=== PATIENT | male | born 1935 | race Caucasian/White ===

== ENCOUNTER 2017-12-19 05:23 | Emergency (ER) | payer MEDICARE, BC, SELFPAY ==
[2017-12-19 05:28] VITALS: BP 182/82; PULSE 85; RESP 18; TEMP 37.1; O2SAT 99; BMI 26.2
[2017-12-19 05:37] VITALS: BP 179/75; PULSE 78; RESP 16; O2SAT 99
[2017-12-19] MEDS: Cephalexin 250 MG Capsule 500 MG PO (05:47)
[2017-12-19] MEDS: Phenazopyridine 95 MG Tablet 190 MG PO (05:47)
[2017-12-19 05:54] LABS: Mucous, Urine 0 SEEN /hpf (<or=2+); Squamous Epithelial Cells - UA 0 SEEN /hpf (0-5)
[2017-12-19 05:56] LABS: Color, Urine Yellow (Yellow); Glucose, Dipstick Normal (Normal); Ketone-Dipstick Negative (Negative); Leukocyte Esterase-Dipstick 500 /ul (Negative); Nitrite-Dipstick Positive (Negative); Occult Blood-Urine 250 /ul (Negative); Protein-Dipstick 30 mg/dl (Negative); Specific Gravity, Urine 1.015 (1.002-1.030); Urine Bilirubin Dipstick Negative (Negative); Urine Clarity Sl. Cloudy (Clear); Urine Urobilinogen Normal (Normal)
[2017-12-19 06:04] LABS: Bacteria 3+ /hpf (None Seen); Red Blood Cells-Urine 0-5 SEEN /hpf (0-5); White Blood Cells 25-50 SEEN /hpf (0-5)
--- NOTE | 2017-12-19 06:24 | ED.VISSUMM ---
- ER Visit Summary Date of Service: 12/19/17 Chief Complaint: Dysuria History of Present Illness: The patient is a 82 M who is visiting from [place] and is to return today. He reports he has dysuria, frequency, and hematuria that began yesterday. He feels as though he is emptying his bladder well. He denies any fever, nausea, vomiting, flank pain, or other complaints. He does have a history of a mechanical aortic valve and is on Coumadin. His last INR was 2 weeks ago and it was 3. Physical Examination: Vitals: Stable. Afebrile. General: Well-nourished and well-developed. Head: Normocephalic atraumatic. Neck: Supple, no lymphadenopathy. No JVD. Nontender. Cardiovascular: Regular rate and rhythm. 2 out of 6 systolic murmur with a mechanical valve click. Respiratory: No respiratory distress. Clear to auscultation bilaterally. Abdominal: Soft, nontender, nondistended, normal bowel sounds. No guarding, rebound, or peritoneal signs. Back: Nontender. Extremities: Nontender, no edema. Skin: Normal color, no rash. Neurologic: Alert and oriented ?3. Cranial nerves II through XII are intact. Normal strength and sensation. Psych: Normal affect. Test Results: UA shows leukocytes, nitrites, blood, 25-50 white blood cells, and 3+ bacteria. The patient did not want his INR measured. Emergency Department Course and Treatment: Patient was treated with Keflex and Azo. He is resting comfortably. Treatment Plan: Patient will be discharged on Keflex 500 mg p.o. 3 times daily as I do not have a creatinine clearance. He will given Pyridium for symptom management. Instructed to follow-up his primary care physician 1 week if not improving. Return to the emergency department for any worsening symptoms. Disposition: To home in improved and stable condition. Impression: 1. UTI. 2. Coumadin coagulopathy. This note was generated with [email or web address] dictation software. It may contain incorrect words, spelling, and punctuation that were not noted in review of the chart prior to signing ED Disposition - Plan for ED Patient: Disposition: Home or Assisted Living Chief Complaint: Complaint Instructions: ED UTI Cystitis Male Prescriptions: Phenazopyridine HCl [Pyridium] 200 mg PO BID PRN PRN #10 tablet PRN Reason: Pain Cephalexin [Keflex] 500 mg PO TID #30 capsule Referrals: Doctor,Your [STAFF PHYSICIAN] - 1 Week if not improving
[2017-12-19 06:31] VITALS: PULSE 70; RESP 18; O2SAT 97
== END 2017-12-19 06:32 | disposition home or self-care (01) ==
PROVIDERS: Emergency Provider Emergency Medicine
DX: N39.0 Urinary tract infection, site not specified (principal); B96.89 Other specified bacterial agents as the cause of diseases classified elsewhere; R31.9 Hematuria, unspecified; I25.10 Atherosclerotic heart disease of native coronary artery without angina pectoris; E78.00 Pure hypercholesterolemia, unspecified; Z95.1 Presence of aortocoronary bypass graft; Z95.2 Presence of prosthetic heart valve; Z79.01 Long term (current) use of anticoagulants; Z79.82 Long term (current) use of aspirin; Z79.899 Other long term (current) drug therapy
CPT/HCPCS: 81001; 87077; 87086; 87088; 87186; 99283